=== PATIENT | female | born 1960 | race Caucasian/White ===

== ENCOUNTER 2016-07-25 06:12 | Day surgery (SDC) | payer OTHER ==
[~2016-07-25 06:12] MED LIST: NO MEDS PER PT
== END 2016-07-25 10:40 ==
LOC: WSU 06:12 → SHSA 06:16
DX: N81.4 Uterovaginal prolapse, unspecified (principal); Z53.9 Procedure and treatment not carried out, unspecified reason; F41.9 Anxiety disorder, unspecified; Z90.49 Acquired absence of other specified parts of digestive tract; Z87.891 Personal history of nicotine dependence

== ENCOUNTER 2016-07-27 14:18 | Day surgery (SDC) | payer OTHER ==
[2016-07-28] MEDS ORDERED: PERCOCET 5-3251 EACH PO (01:15)
== END 2016-07-28 15:40 ==
LOC: WSU 14:18 → SHSB 14:21 → ORW 17:10 → PACU 17:56 → OBGF 19:15
PROC: 0UT94ZZ Resection of Uterus, Percutaneous Endoscopic Approach (ICD-10-PCS; principal; 2016-07-27)
PROC: 0UTC4ZZ Resection of Cervix, Percutaneous Endoscopic Approach (ICD-10-PCS; 2016-07-27)
PROC: 0UT24ZZ Resection of Bilateral Ovaries, Percutaneous Endoscopic Approach (ICD-10-PCS; 2016-07-27)
PROC: 0UT74ZZ Resection of Bilateral Fallopian Tubes, Percutaneous Endoscopic Approach (ICD-10-PCS; 2016-07-27)
PROC: 8E0W4CZ Robotic Assisted Procedure of Trunk Region, Percutaneous Endoscopic Approach (ICD-10-PCS; 2016-07-27)
PROC: 0JQC0ZZ Repair Pelvic Region Subcutaneous Tissue and Fascia, Open Approach (ICD-10-PCS; 2016-07-27)
DX: N81.3 Complete uterovaginal prolapse (principal); D25.1 Intramural leiomyoma of uterus; N84.0 Polyp of corpus uteri; L57.0 Actinic keratosis; K21.9 Gastro-esophageal reflux disease without esophagitis; Z87.891 Personal history of nicotine dependence; Z90.49 Acquired absence of other specified parts of digestive tract
CPT/HCPCS: J0690; J1170; J2405; J3010; J7030